=== PATIENT | male | born 1995 | race African-American/Black ===

== ENCOUNTER 2017-02-23 11:47 | Emergency (ER) | payer OTHER ==
--- NOTE | ~2017-02-23 | CR230 ---
[facility] A Service of [facility] & [facility] RADIOLOGY TEXT RESULTS PATIENT: ELIANA JOY LOCATION: CFTX : [birth year] UNIT #: [id number] AGE: [address]: Marina Low APRN SEX: M ORDER DR: [id number] [facility] [address] [place], [place] [address] [id number] E MR#: [id number] Acc #: [id number] NAME: ELIANA JOY : 1995 SEX: M STUDY DATE/TIME: 02/23/2017 12:45 UNIT: [facility] ROOM: STUDY DESCRIPTION: CR Shoulder Min 2 View Rt Attending Physician: Marina Low A.P.R.N. Referring Physician: Sal Medrano M.D. Ordering Physician: Ed Kaden Mir M.D. Primary Care Physician: No Primary Care Physician MEDICAL IMAGING REPORT This report is preliminary unless electronic signature is present EXAM Right shoulder. INDICATIONS Right shoulder pain for 2 weeks. FINDINGS AP view with internal and external rotation of the shoulder girdle shows satisfactory relationship of the humeral head and glenoid fossa. The joint space is normal. There is no identifiable fracture or dislocation or bony destructive process about the shoulder girdle anatomy. The acromioclavicular joint is normal. There is no radiopaque foreign body in the region. IMPRESSION Normal right shoulder. Dictated by... Edi Trevino M.D. THIS IS AN ELECTRONICALLY VERIFIED REPORT Edi Trevino M.D. at 02/24/2017 7:03 AM JARED/kunal TD: 02/23/2017 21:48 JOB #: [id number] MEDICAL IMAGING REPORT Page 1 of 1 COPY
[~2017-02-23 11:47] MED LIST: AUGMENTIN PO; MEDROL DOSEPAK4 MG PO
== END 2017-02-23 13:20 | disposition home or self-care (01) ==
LOC: CFTX 11:47 → CED 11:47 → CFTX 12:35
DX: J02.9 Acute pharyngitis, unspecified (principal); S46.911A Strain of unspecified muscle, fascia and tendon at shoulder and upper arm level, right arm, initial encounter; X50.0XXA Overexertion from strenuous movement or load, initial encounter; Y92.9 Unspecified place or not applicable
CPT/HCPCS: 73030; 87651; 99283